=== PATIENT | male | born 1990 | race Caucasian/White ===

== ENCOUNTER 2017-04-12 15:59 | Emergency (ER) | payer OTHER ==
[~2017-04-12] VITALS: Ht 157.4 cm; Wt 54.9 kg
--- NOTE | ~2017-04-12 | EKG ---
[place], [place] ELECTROCARDIOGRAM REPORT NAME: FRANSISCA CRAWFORD UNIT #: [id number] ROOM: DOCTOR: BELKYS GONZALEZ MD BIRTHDATE: [birth year] DOS: 04/12/2017 TIME: 1608 hours. Normal sinus rhythm at 72 beats per minute. Low voltage T-wave in lateral leads. An abnormal ECG. No previous tracing is available for comparison. BELKYS GONZALEZ MD CM:EKGRPT:ELECTROCARDIOGRAM REPORT 1705 14 BELKYS GONZALEZ MD
[~2017-04-12 15:59] MED LIST: IBU800 M1 PO
[2017-04-12 16:17] LABS: BASO % 0.4 % (0.0-1.0); EOS # 0.2 10*3/uL (0.0-0.4); EOS % 2.6 % (1.0-4.0); HEMATOCRIT 49.7 % (42.0-52.0); HEMOGLOBIN 17.3 g/dl (14.0-18.0); LYMPH # 1.6 10*3/uL (1.3-4.4); LYMPH % 19.8 % (27.0-41.0); MEAN CELL VOLUME 90.7 fl (80.0-94.0); MEAN CORPUSCULAR HGB 31.6 pg (27.0-31.0); MEAN CORPUSCULAR HGB CONC 34.8 g/dl (33.0-37.0); MEAN PLATELET VOLUME 10.8 fl (9.6-12.3); MONO # 0.7 10*3/uL (0.1-1.0); NEUT # 5.4 10*3/uL (2.3-7.9); NEUT % 67.9 % (47.0-73.0); PLATELET COUNT AUTOMATED 261 10*3/uL (130-400); RED BLOOD COUNT 5.48 10*6/uL (4.50-5.90)
[2017-04-12 16:25] LABS: ACT PARTIAL THROMBO TIME 23.8 SECONDS (20.8-31.5)
[2017-04-12 16:36] LABS: ALBUMIN 4.3 gm/dl (3.1-4.5); ALKALINE PHOSPHATASE 94 U/L (45-117); BUN 9 mg/dl (7-24); CHLORIDE 103 mmol/L (98-107); CREATININE 1.04 mg/dL (0.70-1.30); MAGNESIUM 2.1 mg/dL (1.5-2.1); POTASSIUM 3.6 mmol/L (3.5-5.1); SGOT/AST 19 IU/L (3-35); SGPT/ALT 25 U/L (12-78); SODIUM 137 mmol/L (136-145); TOTAL PROTEIN 8.2 gm/dL (6.4-8.2)
[2017-04-12 16:37] LABS: TROPONIN I < 0.015 ng/ml (<0.045)
[2017-04-12] MEDS ORDERED: PRILOSEC20 M1 PO (17:38)
[2017-04-12 17:47] LABS: BILIRUBIN NEGATIVE (NEGATIVE); BLOOD NEGATIVE (NEGATIVE); CLARITY CLEAR (CLEAR); COLOR YELLOW (YELLOW); GLUCOSE NEGATIVE (NEGATIVE); KETONE TRACE (NEGATIVE); LEUKO ESTERASE NEGATIVE (NEGATIVE); NITRITE NEGATIVE (NEGATIVE); SPECIFIC GRAVITY 1.015 (1.005-1.030); UROBILINOGEN 0.2 E.U./dl (0.2-1.0)
[2017-04-12 17:56] LABS: URINE AMPHETAMINES < 1000 (1000ng/ml); URINE BARBITURATES < 200 (200ng/ml); URINE BENZODIAZEPINES < 200 (200ng/ml); URINE CANNABINOIDS (THC) < 50 (50ng/ml); URINE COCAINE < 300 (300ng/ml); URINE METHADONE < 300 (300ng/ml); URINE OPIATES < 300 (300ng/ml)
[2017-04-12 17:58] LABS: URINE PHENCYCLIDINE < 25 (25ng/ml)
[2017-04-12 18:00] LABS: BACTERIA TRACE; EPITHELIAL CELLS 0-2; MUCOUS 1+; RBC 0-2 rbc/hpf (0-2); WBC 0-2 wbc/hpf (0-5)
== END 2017-04-12 17:57 | disposition home or self-care (01) ==
LOC: ED 15:59
PROVIDERS: Emergency Medicine
DX: R10.13 Epigastric pain (principal); R07.89 Other chest pain

== ENCOUNTER 2017-07-17 22:06 | Emergency (ER) | payer MEDICAID ==
[~2017-07-17] VITALS: Ht 157.4 cm; Wt 54.4 kg
[~2017-07-17 22:06] MED LIST changes: +PRILOSEC20 M1 PO
== END 2017-07-18 00:22 | disposition home or self-care (01) ==
LOC: ED 22:06
DX: S60.511A Abrasion of right hand, initial encounter (principal); F17.200 Nicotine dependence, unspecified, uncomplicated; Y04.0XXA Assault by unarmed brawl or fight, initial encounter; Y93.89 Activity, other specified; Y92.89 Other specified places as the place of occurrence of the external cause; Y99.8 Other external cause status

== ENCOUNTER → 2017-12-19 | Outpatient (CLI) | payer MEDICAID | END | disposition home or self-care (01) | LOC: US 16:59 | DX: I86.1 Scrotal varices (principal); N50.3 Cyst of epididymis ==